=== PATIENT | male | born 1995 | race Caucasian/White ===

== ENCOUNTER 2019-11-03 01:59 | Emergency (ER) | payer BC ==
[2019-11-03 02:14] VITALS: RESP 18
[2019-11-03 02:48] LABS: Appearance,Urine Clear (Clear); Bilirubin,Urine Negative (Negative); Blood,Urine Negative (Negative); Color,Urine Light Yellow; Glucose,Urine (UA) Negative (Negative); Ketones,Urine Negative (Negative); Leukocyte Esterase,Urine Negative (Negative); Nitrite,Urine Negative (Negative); PH, Urine 5.5 (5.0-8.0); Protein,Urine Negative (Negative); Specific Gravity,Urine 1.017 (1.001-1.035); Urobilinogen,Urine <2.0 mg/dL (<2.0)
--- NOTE | 2019-11-03 03:20 | ED ---
Male Urogenital HPI - General Chief complaint: Urogenital Stated complaint: Male Time Seen by Provider: 11/03/19 02:17 Source: patient Mode of arrival: ambulatory Limitations: no limitations - History of Present Illness Initial comments: Ben is a 24-year-old male presents the emergency department today for evaluation of acute onset right testicular pain. Patient reports he woke from sleep with pain in his right testicle that he describes as a twisting-like sensation. He states he never had pain like this in the past. He states that his left testicle usually hangs lower than the right due to previous surgery for hydrocele. He hasn't noted any specific swelling in the testicles he denies any penile drainage or concern for sexual transmitted infection. - Related Data Allergies Allergy/AdvReac Type Severity Reaction Status Date / Time Penicillins Allergy Rash/Hives Verified 11/03/19 02:15 Review of Systems ROS Statement: Those systems with pertinent positive or pertinent negative responses have been documented in the HPI. ROS Other: All systems not noted in ROS Statement are negative. Past Medical History Past Medical History: No Reported History History of Any Multi-Drug Resistant Organisms: None Reported Past Surgical History: Orthopedic Surgery Past Psychological History: No Psychological Hx Reported Smoking Status: Current some day smoker Past Alcohol Use History: Occasional Past Drug Use History: Marijuana General Exam - General Exam Comments Initial Comments: Physical Exam GENERAL: Patient is well-developed and well-nourished. Patient is nontoxic and well-hydrated and is in no distress. HENT: Normocephalic, Atraumatic. EYES: PERRL, EOMI PULMONARY: Unlabored respirations. CARDIOVASCULAR: RRR Warm and well perfused extremities ABDOMEN: Non-distended SKIN: No rashes or bruising : Normal external genitalia, penis is circumcised Left testicle hangs lower than the right Right testicle with a horizontal lie Negative cremasteric reflex No swelling or tenderness on palpation NEUROLOGIC: Alert and oriented Normal speech Normal gait MUSCULOSKELETAL: Moving all extremities with no apparent injury PSYCHIATRIC: No SI/HI Limitations: no limitations Course Vital Signs 11/03/19 11/03/19 02:11 03:52 Temperature 97.7 F 98.1 F Pulse Rate 90 82 Respiratory 18 18 Rate Blood Pressure 135/76 133/74 O2 Sat by Pulse 99 97 Oximetry Medical Decision Making - Medical Decision Making She was seen and evaluated history is obtained from patient Physical exam is concerning for possible torsion the patient does have a testicle that is high riding Patient declined pain meds Resulted with No Acute Findings, There Is a Fluid Collection Lateral to the Testicle and Varicoceles Bilaterally, These Results Were Discussed with the Patient Who Expresses Relief at This Time Is Comfortable to Plan for Discharge Home and Outpatient Follow-Up with Urology. Dose return parameters were discussed, patient expressed understanding of the need for immediate return for any testicular pain or concern for torsion. - Lab Data Lab Results 11/03/19 Range/Units 02:30 Urine Color Light Yellow Urine Appearance Clear (Clear) Urine pH 5.5 (5.0-8.0) Ur Specific [place] 1.017 (1.001-1.035) Urine Protein Negative (Negative) Urine Glucose (UA) Negative (Negative) Urine Ketones Negative (Negative) Urine Blood Negative (Negative) Urine Nitrite Negative (Negative) Urine Bilirubin Negative (Negative) Urine Urobilinogen <2.0 (<2.0) mg/dL Ur Leukocyte Esterase Negative (Negative) Disposition Clinical Impression: Testicular pain, right Disposition: HOME SELF-CARE Condition: Stable Instructions (If sedation given, give patient instructions): Hydrocele (ED), Testicle Pain (ED) Is patient prescribed a controlled substance at d/c from ED?: No Referrals: Nonstaff,Physician [Primary Care Provider] - 1-2 days Edgar Farooq MD [STAFF PHYSICIAN] - 1-2 days
--- NOTE | 2019-11-03 03:35 | US ---
EXAMINATION TYPE: US scrotum with doppler. Grayscale and color Doppler Duplex imaging performed of roberto blood scrotum. DATE OF EXAM: 11/03/2019 COMPARISON: NONE CLINICAL HISTORY: pain. right testicle pain EXAM MEASUREMENTS: TESTICLES: Right Testicle: 4.4 x 2.4 x 2.9 cm Left Testicle: 4.0 x 3.0 x 3.8 cm EPIDIDYMIS HEAD: Right Epididymis: 1.1 cm Left Epididymis: 1.1 cm Doppler performed to assess for testicular vascularity; good bilateral color flow and waveforms are s een. There is no evidence of testicular torsion. Presence of hydroceles: small fluid collection lateral to right testicle = 2.8cm Presence of varicoceles: yes, medial to right testicle and lateral to left testicle *cystic areas right epididymis, largest = 0.5cm IMPRESSION: There are bilateral varicoceles. No evidence of testicular torsion or mass. There is loca lized fluid collection that measures 28 x 7 mm lateral to right testicle.
[2019-11-03 03:58] VITALS: BP 133/74; PULSE 82; TEMP 98.1
[2019-11-04 14:00] LABS: C. trachomatis,PCR Negative (Neg,Equiv); Chlamydia trachomatis Source Urine; N. gonorrhoeae,PCR Negative (Neg,Equiv); Neisseria Source Urine
== END 2019-11-03 03:55 | disposition home or self-care (01) ==
LOC: EC 01:59
DX: I86.1 Scrotal varices (principal); N50.811 Right testicular pain; F17.200 Nicotine dependence, unspecified, uncomplicated; Z88.0 Allergy status to penicillin; Z98.890 Other specified postprocedural states
CPT/HCPCS: 76870; 81003; 87491; 87591; 93975; 99284